=== PATIENT | female | born 1990 | race American Indian/Alaskan Native ===

== ENCOUNTER 2024-08-29 13:09 | Emergency (ER) | payer MEDICAID, SELFPAY ==
--- NOTE | 2024-08-29 13:23 | EDRME_ITS ---
Rapid Medical Screening Exam RME Arrival date/time: 08/29/24 13:09 33-year-old female presents emergency department today in the custody of the [facility] department patient refusing medical care does not want any treatment or assessment Chief Complaint: Medical Clearance Time Seen by Provider: 08/29/24 13:19
--- NOTE | 2024-08-29 13:24 | PC.NURSE ---
refused vital signs
== END 2024-08-29 13:33 ==
LOC: SERX 13:28
PROVIDERS: Emergency Provider Emergency Medicine
DX: Z53.21 Procedure and treatment not carried out due to patient leaving prior to being seen by health care provider (principal)